=== PATIENT | female | born 1980 | race Caucasian/White ===

== ENCOUNTER 2017-09-16 08:00 | Emergency (ER) | payer BC ==
[~2017-09-16] VITALS: Ht 170.2 cm; Wt 93.4 kg
[2017-09-16 08:08] VITALS: BP 136/93
--- NOTE | 2017-09-16 08:30 | NUR ---
patient came in private vehicle for c/o feeling sick x 3 weeks. per patient she was at urgent care on 09/13/17 and received prescriptions for inhaler, steriod and po abt. patient states compliance to po abt and inhaler. patient's respirations are even and unlabored. no dyspnea observed. patient states productive cough present, none observed. lung sounds clear to ausculation. patient appears stable at this time.
--- NOTE | 2017-09-16 08:40 | NUR ---
patient out to radiology.
[2017-09-16 09:05] VITALS: BP 114/71
--- NOTE | 2017-09-16 09:05 | NUR ---
Patient discharged with v/s stable. Advised patient to continue current treatment. If symptoms worsen to seek further medical attention. Written and verbal after care instructions given and explained. Patient verbalized understanding. Ambulatory with steady gait. All questions addressed prior to discharge. Advised to follow up with PMD.
== END 2017-09-16 09:05 | disposition home or self-care (01) ==
LOC: MED 08:00
DX: B34.9 Viral infection, unspecified (principal); J32.9 Chronic sinusitis, unspecified; J98.01 Acute bronchospasm; Z88.0 Allergy status to penicillin
CPT/HCPCS: 71046; 99284